=== PATIENT | male | born 1960 | race Caucasian/White ===

== ENCOUNTER 2018-11-05 17:40 | Emergency (ER) | payer MEDICAID ==
[~2018-11-05] VITALS: Ht 165.1 cm; Wt 61.7 kg
[2018-11-05 17:54] VITALS: Ht 165.1 cm; Wt 61.7 kg
[2018-11-05 20:13] LABS: UA SPECIFIC GRAVITY >=1.030 (1.005-1.035); microscopic required? YES; urine erythrocyte TRACE (NEGATIVE)
[2018-11-05 20:13] LABS: BASOPHIL % 0.4 % (0-2); PLATELET COUNT 201 x10^3mcL (130-400); RED CELL DISTRIBUTION WIDTH 14.3 % (11.5-14.5)
[2018-11-05 20:25] LABS: AMPHETAMINE QUAL UR NONE DETECTED (See below)
[2018-11-05 20:35] LABS: ALKALINE PHOSPHATASE 222 U/L (46-116); ALT/SGPT 29 U/L (16-63); AST/SGOT 32 U/L (15-37); BILIRUBIN TOTAL 0.3 mg/dL (0.20-1.00); CALCIUM 8.3 mg/dL (8.5-10.1); CARBON DIOXIDE 20.9 mmol/L (21-32); CHLORIDE SERUM 105 mmol/L (98-107); CREATININE SERUM 1.3 mg/dL (0.7-1.3); GFR1 > 60 mL/min; GLUCOSE SERUM 100 mg/dL (74-106); HDL CHOLESTEROL 51 mg/dL (40-60); LIPASE 277 IU/L (73-393); MAGNESIUM 1.9 mg/dL (1.8-2.4); SODIUM SERUM 135 mmol/L (136-145); T4(THYROXINE) 8.2 ug/dL (4.7-13.3); TOTAL PROTEIN, SERUM 7.1 g/dL (6.4-8.2)
[2018-11-05 20:39] LABS: ALBUMIN 2.1 g/dL (3.4-5.0); CHOLESTEROL 130 mg/dL (<200); POTASSIUM SERUM 5.7 mmol/L (3.5-5.1)
[2018-11-05 22:19] VITALS: BP 174/84
== END 2018-11-05 22:19 | disposition home or self-care (01) ==
LOC: ED 17:40
PROVIDERS: Emergency Medicine
DX: K76.7 Hepatorenal syndrome (principal); R18.8 Other ascites; R64 Cachexia; I10 Essential (primary) hypertension; R80.9 Proteinuria, unspecified; E88.09 Other disorders of plasma-protein metabolism, not elsewhere classified; D64.9 Anemia, unspecified; I12.9 Hypertensive chronic kidney disease with stage 1 through stage 4 chronic kidney disease, or unspecified chronic kidney disease; N18.3 Chronic kidney disease, stage 3 (moderate); E11.9 Type 2 diabetes mellitus without complications; F10.20 Alcohol dependence, uncomplicated
CPT/HCPCS: 82962; G0480; J3490

== ENCOUNTER 2019-02-05 16:38 | Emergency (ER) | payer MEDICAID ==
[~2019-02-05] VITALS: Ht 162.6 cm; Wt 60.3 kg
[2019-02-05 17:12] VITALS: Ht 162.6 cm; Wt 60.3 kg
[2019-02-05 17:35] VITALS: BP 151/49
== END 2019-02-05 18:18 | disposition home or self-care (01) ==
LOC: ED 16:38
DX: K40.90 Unilateral inguinal hernia, without obstruction or gangrene, not specified as recurrent (principal); F17.210 Nicotine dependence, cigarettes, uncomplicated; I10 Essential (primary) hypertension; E11.9 Type 2 diabetes mellitus without complications; Z90.79 Acquired absence of other genital organ(s)

== ENCOUNTER 2019-05-15 13:48 | Inpatient (IN) | payer OTHER ==
[~2019-05-15] VITALS: Ht 165.1 cm; Wt 55.8 kg
[2019-05-15 14:06] VITALS: Ht 165.1 cm; Wt 55.8 kg
[2019-05-15 14:38] LABS: BASOPHIL % 0.6 % (0-2); PLATELET COUNT 209 x10^3mcL (130-400); RED CELL DISTRIBUTION WIDTH 15.6 % (11.5-14.5)
[2019-05-15 14:54] LABS: BILIRUBIN TOTAL 0.3 mg/dL (0.20-1.00); CALCIUM 8.6 mg/dL (8.5-10.1); CARBON DIOXIDE 14.9 mmol/L (21-32); CREATININE SERUM 1.5 mg/dL (0.7-1.3); TOTAL PROTEIN, SERUM 7.7 g/dL (6.4-8.2)
[2019-05-15 15:07] LABS: ALBUMIN 2.4 g/dL (3.4-5.0); POTASSIUM SERUM 7.4 mmol/L (3.5-5.1)
[2019-05-15] MEDS ORDERED: TOPROL XL25 MG PO (17:33)
[2019-05-15] MEDS ORDERED: HYDRALAZINE HCL10 MG PO (17:33)
[2019-05-15] MEDS ORDERED: LANTUS SOLOS100 U/M1 SC (17:34)
[2019-05-15] MEDS ORDERED: NOR10 PO (17:35)
[2019-05-15] MEDS ORDERED: SIMVASTATIN5 M2 PO (17:35)
[2019-05-15 18:18] VITALS: BP 2164/80
[2019-05-15 20:35] VITALS: BP 155/74
[2019-05-15 20:39] LABS: CALCIUM 8.8 mg/dL (8.5-10.1); CARBON DIOXIDE 18.7 mmol/L (21-32); CHLORIDE SERUM 112 mmol/L (98-107); CREATININE SERUM 1.2 mg/dL (0.7-1.3); GFR1 > 60 mL/min; GLUCOSE SERUM 92 mg/dL (74-106); SODIUM SERUM 139 mmol/L (136-145)
[2019-05-15 20:44] LABS: POTASSIUM SERUM 6.3 mmol/L (3.5-5.1)
[2019-05-16 05:45] VITALS: BP 129/78
[2019-05-16 06:25] LABS: BASOPHIL % 0.4 % (0-2); PLATELET COUNT 184 x10^3mcL (130-400)
[2019-05-16 06:36] LABS: RED CELL DISTRIBUTION WIDTH 15.3 % (11.5-14.5)
[2019-05-16 06:40] LABS: CALCIUM 9.3 mg/dL (8.5-10.1); CARBON DIOXIDE 18.2 mmol/L (21-32); CHLORIDE SERUM 117 mmol/L (98-107); CREATININE SERUM 0.9 mg/dL (0.7-1.3); GFR1 > 60 mL/min; GLUCOSE SERUM 95 mg/dL (74-106); MAGNESIUM 2.1 mg/dL (1.8-2.4); SODIUM SERUM 142 mmol/L (136-145)
[2019-05-16 07:36] LABS: POTASSIUM SERUM 5.9 mmol/L (3.5-5.1)
[2019-05-16 09:22] VITALS: BP 152/77
[2019-05-16 12:17] LABS: CALCIUM 9.5 mg/dL (8.5-10.1); CARBON DIOXIDE 20.1 mmol/L (21-32); CHLORIDE SERUM 115 mmol/L (98-107); CREATININE SERUM 0.9 mg/dL (0.7-1.3); GFR1 > 60 mL/min; GLUCOSE SERUM 126 mg/dL (74-106); SODIUM SERUM 140 mmol/L (136-145)
[2019-05-16 12:42] LABS: POTASSIUM SERUM 5.7 mmol/L (3.5-5.1)
[2019-05-16 12:53] VITALS: BP 153/77
[2019-05-16 12:59] VITALS: BP 153/77
[2019-05-16 17:30] VITALS: BP 117/69
== END 2019-05-16 19:25 | disposition home or self-care (01) | DRG 469 ==
LOC: ED 13:48 → DU 17:08
PROVIDERS: Emergency Medicine; Internal Medicine; Internal Medicine Pulmonary Disease; ADMIT Hospitalist
DX: N17.9 Acute kidney failure, unspecified (principal); K70.30 Alcoholic cirrhosis of liver without ascites; E87.5 Hyperkalemia; I10 Essential (primary) hypertension; E86.0 Dehydration; E11.9 Type 2 diabetes mellitus without complications; E78.00 Pure hypercholesterolemia, unspecified; F17.210 Nicotine dependence, cigarettes, uncomplicated; Z79.4 Long term (current) use of insulin; Z71.6 Tobacco abuse counseling; Z79.899 Other long term (current) drug therapy
CPT/HCPCS: 82962; 99406; G0378; J1644; J1815; J3490; J7030; J7613; Q0092